=== PATIENT | female | born 1965 ===

== ENCOUNTER → 2020-05-13 09:31 | Outpatient (BNVA) | payer OTHER, SELFPAY | PROVIDERS: PCP Internal Medicine; Visit Provider Surgery | DX: E66.9 Obesity, unspecified (principal); Z68.34 Body mass index [BMI] 34.0-34.9, adult | CPT/HCPCS: 99212 ==

== ENCOUNTER → 2020-08-24 09:10 | Outpatient (BNVA) | payer OTHER, SELFPAY | PROVIDERS: PCP Internal Medicine; Visit Provider Physician Assistant | DX: E66.9 Obesity, unspecified (principal); Z68.34 Body mass index [BMI] 34.0-34.9, adult | CPT/HCPCS: 99212 ==

== ENCOUNTER 2020-09-06 07:09 | Outpatient (REF) | payer OTHER, SELFPAY ==
[2020-09-06 08:27] LABS: MANUAL DIFF FLAG NO
[2020-09-06 08:41] LABS: Basophils Absolute Auto 0.1 X10*3/uL (0.0-0.2); Basophils Percent Auto 0.8 % (0-2); Eosinophils Absolute Auto 0.1 X10*3/uL (0.0-0.4); Eosinophils Percent Auto 1.4 % (0-4); Hematocrit 36.2 % (37-47); Hemoglobin 11.4 g/dl (12.0-16.0); Imm Gran Abs Auto 0.01 X10*3/uL (0.00-0.03); Imm Gran Pct Auto 0.2 % (0.0-0.4); Lymphocytes Absolute Auto 2.1 X10*3/uL (1.2-4.9); Lymphocytes Percent Auto 31.3 % (20-40); Mean Corpuscular HGB Conc 31.5 g/dl (31.0-35.0); Mean Corpuscular Hemoglobin 29.2 pg (27.0-33.0); Mean Corpuscular Volume 92.6 fL (80-98); Mean Platelet Volume 11.4 fL (9.4-12.3); Monocytes Absolute Auto 0.4 X10*3/uL (0.1-1.2); Monocytes Percent Auto 6.6 % (2-11); Neutrophils Percent Auto 59.7 % (45-73); Platelet Count 193 X10*3/uL (160-400); Red Blood Count 3.91 X10*6/uL (4.20-5.50); Red Cell Distribution Width 14.8 % (11.0-16.0); White Blood Count 6.6 X10*3/uL (4.8-10.8)
[2020-09-06 08:46] LABS: Estimated Average Glucose 120 mg/dL; Hemoglobin A1c % 5.8 %
[2020-09-06 08:55] LABS: Alanine Aminotransferase 11 U/L (0-31); Albumin Level 4.1 g/dL (3.5-5.0); Alkaline Phosphatase 64 U/L (39-117); Anion Gap 10 (12-20); Aspartate Amino Transferase 13 U/L (5-31); Bilirubin Total 0.3 mg/dL (0.0-1.0); Blood Urea Nitrogen 30 mg/dL (9-16); C Reactive Protein 0.95 mg/dL (< or = 0.50); Calcium 9.5 mg/dL (8.4-10.2); Carbon Dioxide 27 mmol/L (22-29); Chloride 107 mmol/L (96-108); Cholesterol 158 mg/dL; Estimated Glomerular Filt Rate > 60; Glucose Random 93 mg/dL (60-115); HDL Cholesterol 50 mg/dL; LDL Cholesterol Calculated 97 mg/dl; Sodium 140 mmol/L (135-145); Total Protein 7.3 g/dL (6.5-8.0); Triglycerides 59 mg/dL
[2020-09-06 09:15] LABS: Ferritin 125 ng/mL (10-250); TSH reflex Free T4 1.02 uIU/mL (0.32-4.0); Vitamin D 25-OH Total 30.6 ng/mL (>30)
[2020-09-06 09:19] LABS: Folate 13.6 ng/mL (> or = 4.0); Vitamin B12 567 pg/mL (200-900)
[2020-09-07 09:32] LABS: Insulin Level Total 19.2 uIU/mL
[2020-09-08 13:46] LABS: Calcium (PTHI) 9.2 mg/dL (8.6-10.4); PTHI 83 pg/mL (14-64)
[2020-09-09 07:27] LABS: Zinc 64 mcg/dL (60-130)
[2020-09-10 12:31] LABS: Vitamin B1 7 nmol/L (8-30)
[2020-09-12 17:11] LABS: Vitamin A 41 mcg/dL (38-98)
== END 2020-09-06 07:10 | disposition home or self-care (01) ==
LOC: HO.LAB 07:09
PROVIDERS: PCP Internal Medicine; Visit Provider Physician Assistant
DX: E66.9 Obesity, unspecified (principal)
CPT/HCPCS: 36415; 80053; 80061; 82306; 82607; 82728; 82746; 83036; 83525; 83970; 84425; 84443; 84590; 84630; 85025; 86140

== ENCOUNTER → 2020-09-23 09:18 | Outpatient (BNVA) | payer OTHER, SELFPAY | PROVIDERS: PCP Internal Medicine; Visit Provider Physician Assistant | DX: E66.9 Obesity, unspecified (principal); Z68.33 Body mass index [BMI] 33.0-33.9, adult; D64.9 Anemia, unspecified; Z71.3 Dietary counseling and surveillance | CPT/HCPCS: 99212 ==

== ENCOUNTER → 2020-10-28 08:11 | Outpatient (BNVA) | payer OTHER, SELFPAY | PROVIDERS: PCP Internal Medicine; Visit Provider Dietitian, Registered | DX: E66.9 Obesity, unspecified (principal) | CPT/HCPCS: 97803 ==

== ENCOUNTER → 2020-11-25 08:25 | Outpatient (BNVA) | payer OTHER, SELFPAY | PROVIDERS: PCP Internal Medicine; Visit Provider Physician Assistant ==

== ENCOUNTER → 2020-12-23 10:01 | Outpatient (BNVA) | payer OTHER, SELFPAY | PROVIDERS: PCP Internal Medicine; Visit Provider Physician Assistant | DX: E66.9 Obesity, unspecified (principal); Z68.32 Body mass index [BMI] 32.0-32.9, adult | CPT/HCPCS: 99212 ==

== ENCOUNTER → 2021-04-12 09:14 | Outpatient (BNVA) | payer OTHER, SELFPAY | PROVIDERS: PCP Internal Medicine; Visit Provider Physician Assistant | DX: E66.9 Obesity, unspecified (principal); Z68.32 Body mass index [BMI] 32.0-32.9, adult | CPT/HCPCS: 99212 ==

== ENCOUNTER 2021-08-03 06:50 | Outpatient (REF) | payer OTHER, SELFPAY ==
[2021-08-03 07:05] LABS: MANUAL DIFF FLAG NO
[2021-08-03 07:55] LABS: Basophils Percent Auto 0.5 % (0-2); Eosinophils Absolute Auto 0.1 X10*3/uL (0.0-0.4); Eosinophils Percent Auto 1.9 % (0-4); Hematocrit 35.3 % (37.0-47.0); Hemoglobin 11.3 g/dl (12.0-16.0); Imm Gran Abs Auto 0.01 X10*3/uL (0.00-0.03); Imm Gran Pct Auto 0.2 % (0.0-0.4); Lymphocytes Absolute Auto 2.1 X10*3/uL (1.2-4.9); Lymphocytes Percent Auto 33.6 % (20-40); Mean Corpuscular Hemoglobin 29.6 pg (27.0-33.0); Mean Corpuscular Volume 92.4 fL (80.0-98.0); Mean Platelet Volume 11.1 fL (9.4-12.3); Monocytes Absolute Auto 0.5 X10*3/uL (0.1-1.2); Monocytes Percent Auto 7.3 % (2-11); Neutrophils Absolute Auto 3.6 x10*3/uL (2.0-8.3); Neutrophils Percent Auto 56.5 % (45-73); Platelet Count 187 X10*3/uL (160-400); Red Blood Count 3.82 X10*6/uL (4.20-5.50); Red Cell Distribution Width 14.6 % (11.0-16.0); White Blood Count 6.3 X10*3/uL (4.8-10.8)
[2021-08-03 08:07] LABS: Estimated Average Glucose 114 mg/dL; Hemoglobin A1c % 5.6 %
[2021-08-03 08:25] LABS: Alanine Aminotransferase 12 U/L (0-31); Albumin Level 3.9 g/dL (3.5-5.0); Alkaline Phosphatase 63 U/L (39-117); Anion Gap 11 (12-20); Aspartate Amino Transferase 16 U/L (5-31); Bilirubin Total 0.4 mg/dL (0.0-1.0); Blood Urea Nitrogen 29 mg/dL (9-16); Calcium 9.6 mg/dL (8.4-10.2); Carbon Dioxide 25 mmol/L (22-29); Chloride 107 mmol/L (96-108); Cholesterol 152 mg/dL; Estimated Glomerular Filt Rate > 60; Glucose Random 86 mg/dL (60-115); HDL Cholesterol 46 mg/dL; LDL Cholesterol Calculated 96 mg/dl; Potassium 3.9 mmol/L (3.3-5.1); Sodium 139 mmol/L (135-145); Total Protein 7.4 g/dL (6.5-8.0); Triglycerides 52 mg/dL
[2021-08-03 08:38] LABS: Vitamin D 25-OH Total 30.4 ng/mL (>30)
[2021-08-03 09:05] LABS: Folate 10.7 ng/mL (> or = 4.0); Vitamin B12 555 pg/mL (200-900)
[2021-08-03 09:11] LABS: Free T4 (Free Thyroxine) 0.92 ng/dL (0.71-1.85)
[2021-08-04 15:00] LABS: Calcium (PTHI) 9.7 mg/dL (8.6-10.4); PTHI 51 pg/mL (16-77)
[2021-08-07 04:41] LABS: Vitamin B1 13 nmol/L (8-30)
[2021-08-10 00:31] LABS: Vitamin A 49 mcg/dL (38-98)
== END 2021-08-03 06:51 | disposition home or self-care (01) ==
LOC: HO.LAB 06:50
PROVIDERS: Visit Provider Physician Assistant
DX: D64.9 Anemia, unspecified (principal); E66.9 Obesity, unspecified
CPT/HCPCS: 36415; 80053; 80061; 82306; 82607; 82746; 83036; 83970; 84425; 84439; 84443; 84590; 85025

== ENCOUNTER → 2021-08-18 09:48 | Outpatient (BNVA) | payer OTHER, SELFPAY | PROVIDERS: PCP Internal Medicine; Visit Provider Physician Assistant | DX: E66.9 Obesity, unspecified (principal); Z68.31 Body mass index [BMI] 31.0-31.9, adult; E03.9 Hypothyroidism, unspecified | CPT/HCPCS: 99212 ==

== ENCOUNTER → 2022-09-19 09:47 | Outpatient (BNVA) | payer OTHER, SELFPAY | PROVIDERS: PCP Internal Medicine; Visit Provider Physician Assistant Surgical ==

== ENCOUNTER → 2023-03-13 09:31 | Outpatient (BNVA) | payer OTHER, SELFPAY | PROVIDERS: PCP Internal Medicine; Referring Provider Physician Assistant; Visit Provider Neurological Surgery | DX: M54.9 Dorsalgia, unspecified (principal) ==

== ENCOUNTER → 2023-03-13 09:31 | Outpatient (BNVA) | payer OTHER, SELFPAY | PROVIDERS: PCP Internal Medicine; Visit Provider Neurological Surgery ==

== ENCOUNTER 2023-03-27 12:43 | Outpatient (AMB) | payer OTHER, SELFPAY ==
--- NOTE | 2023-03-27 13:09 | A.SPINEOV_ITS ---
Intake Intake Visit Reasons: degenerated disc disease Intake Note: Ms. Cox is here today c/o low back pain. MRI done @ [place]. Acute Specialist Required: No Allergies Adhesive Tape Allergy (Unknown, Uncoded 12/23/20 10:13) Rash Assessment & Plan Assessment & Plan (1) Back pain: Code(s): M54.9 - Dorsalgia, unspecified Plan Dear RIANNA Resendez, Thank you for referring Rosana to our office today. She is a pleasant 58-year-old female who comes in today with a chief complaint of low back pain accompanied by significant discomfort when attempting to lie on her left side. She reports this pain has been chronic for multiple years and has most recently became worse within the last year. She reports no inciting incident for low back pain/left lateral thigh pain, but does state that it worsens with standing/moving and lessens when lying down flat on her back or sitting. She reports that she has tried going to physical therapy in the past, has attempted director of medicare and finds that both of these activities have not been helpful for her. She also has tried [id number] remedies such as Tylenol, ibuprofen, ice, heat, pain patches without significant relief of her symptoms. She states that she has not been to see pain management/physiatry and is unsure if injections could be helpful for her at this time. PMH: Hypothyroidism, hypertension, GERD, seasonal allergies, partial hysterectomy, removal of unspecified mass from her chest per incoming medical record. Social hx: The patient does not smoke, reports no substance use. Medications: Tylenol, Fioricet, carvedilol, cetirizine, clotrimazole, diclofenac, famotidine, furosemide, fluticasone, levothyroxine, omeprazole. Allergies: NKDA. Physical exam: The patient has 5/5 strength in her upper and lower extremities. She does have moderate-severe pain to direct palpation of the left-sided trochanteric bursa. No pain to direct palpation of the lumbar/thoracic spine. Sensation is grossly intact. Reflexes are 2+ and intact. (-) straight leg raise, (-) clonus. Imaging review: MRI completed at [place] (patient has disc but did not bring it, we were able to view it remotely via [employer]) was reviewed by this teletypewriter operator and attending neurosurgeon Dr. Silveira. It shows some moderate left L5 foraminal stenosis, and diffuse degenerative disc disease at the levels of L2-3, L4-5, and L5-S1. No significant central canal stenosis noted in the lumbar spine. Impression: Rosana is a pleasant 58-year-old female who comes in today with chronic low back pain and significant pain with direct compression of the left- sided trochanteric bursa, which can be incited by either lying down her left side or pressing directly on the left lateral side of her thigh. She does have some moderate left-sided L5 foraminal stenosis as noted above, and also has degenerative disc disease at L2-3, L4-5, and L5-S1. She has tried physical therapy and director of medicare but is yet to attempt to see pain management/ for cortisone injections. Before offering her surgical intervention the attending neurosurgeon Dr. Silviera believes it would be more reasonable to have her attempt diagnostic injections to see if she can get relief in the affected areas as described above. I will refer her to pain management here at [facility] for both a left-sided bursa injection of the greater trochanter, and for evaluation of a left L5 TFE injection. The total time spent with this visit with this patient was 45 minutes reviewing history, physical exam, MRI imaging review, and implementation of treatment plan or further diagnostic testing. Arun Silveira MD,PhD [facility] Orders: Referrals Pain Management Referral M54.9 - Dorsalgia, unspecified Coding Level of Care Code New Pt Level 4 (85482) Diagnoses Back pain M54.9
== END 2023-03-27 13:49 | disposition home or self-care (01) ==
PROVIDERS: PCP Internal Medicine; Referring Provider Physician Assistant; Visit Provider Neurological Surgery
DX: M54.9 Dorsalgia, unspecified (principal)
CPT/HCPCS: 99204

== ENCOUNTER → 2023-03-27 12:43 | Outpatient (BNVA) | payer OTHER, SELFPAY | PROVIDERS: PCP Internal Medicine; Visit Provider Neurological Surgery | DX: M54.9 Dorsalgia, unspecified (principal) | CPT/HCPCS: 99202 ==

== ENCOUNTER 2023-03-29 09:57 | Outpatient (AMB) | payer OTHER, SELFPAY ==
--- NOTE | 2023-03-29 10:08 | A.OFFVIS_ITS ---
Intake Vital Signs 03/29/23 10:12 Height 5 ft 1 in Weight 183 lb 2 oz BMI 34.6 BP 122/88 Blood Pressure Location Lt brachial Position Sitting Respiration 18 Pulse 64 Pulse Source Pulse Oximeter Pulse Oximetry (%) 98 Oxygen Delivery Method Room Air Intake Visit Reasons: Dorsalgia, unspecified Allergies Adhesive Tape Allergy (Unknown, Uncoded 12/23/20 10:13) Rash HPI HPI Comments History of Present Illness Details Rosana is a very pleasant 58-year-old female who presented to the office today for evaluation management of her chronic back pain. Patient reports that she has been suffering with this pain for greater than 10 years. She was recently evaluated in neurospine office and referred here for further management and possible injections. Previously has tried Chiropractor, PT, HEP and NSAIDs without relief. MRI in the past, imaging not available but results per neurosurgery note were reviewed with patient. She complains of pain across middle and lower back, worse with movement and activity. Pain is most severe in the evening when she gets home from work, and when she tries to get comfortable for sleep. She is no longer able to tolerate laying on either side as is too uncomfortable. 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 She denies radiation of pain down either leg, denies weakness, numbness, tingling of either leg. Pain today is rated as 5/10. She has never tried muscle relaxers. In terms of muscle damage condition is described as aching, stabbing, sharp, cramping, numb and throbbing. Pain is negatively impacting patient's enjoyment of life, general activity, normal work, sleep and recreational activities. Patient denies red flag symptoms including new loss of bowel, bladder or saddle anesthesia. [facility] Medical History (Updated 03/29/23 @ 10:42 by Emy Newman, MECHANICAL DESIGN ENGINEER FACILITIES, AUTOMOBILE MECHANIC ASSISTANT) GERD (gastroesophageal reflux disease) Vertigo IBS (irritable bowel syndrome) Migraines Lateral meniscus tear Iron deficiency Dilatation of thoracic aorta Hypothyroidism Chronic systolic heart failure HTN (hypertension) Sleep apnea Surgical History H/O endoscopy H/O tubal ligation History of appendectomy History of arthroscopy of left knee History of bladder suspension procedure History of colonoscopy History of lumpectomy of right breast Mediastinal mass Family History Father No problems noted. Mother Arthritis Brother No problems noted. Brother No problems noted. Sister No problems noted. Son No problems noted. Son No problems noted. Social History (Updated 08/18/21 @ 10:05 by Emily Harris [facility]) Alcohol intake: never Patient Tobacco Use Status: Never used Tobacco Review of Systems Const All systems reviewed & are unremarkable except as noted in HPI and below Physical Exam General: awake, alert, oriented. Answers questions appropriately. Fully engaged in examination. Skin: warm, dry, intact HEENT: Normocephalic. Hearing intact. Cardiac: External chest normal in appearance. Respiratory: No cough, audible wheezing or stridor. Abdomen: without gross distension. MS: No obvious swelling or deformities. Able to stand on bilateral tiptoes and bilateral heels.? Able to transition from sit to stand unassisted. Ambulates with bilaterally normal heel strike and toe off Diffusely tender to palpation across bilateral thoracic and lumbar musculature Nontender over midline vertebrae SLR with and without dorsiflexion negative bilaterally Full lumbar flexion and extension [place] negative bilaterally [place] negative bilaterally Thigh thrust negative bilaterally SI compression negative bilaterally Neurological: Oriented to person, place, time and situation. Thought process intact. No gait abnormalities appreciated. Psychiatric: Appropriate mood and affect. Good judgment and insight. Results Reviewed Results Reviewed: per 03/27/2023 Neurosurgical visit note: Imaging review: MRI completed at [place] (patient has disc but did not bring it, we were able to view it remotely via [employer] ([employer])) was reviewed by this leader writer and attending neurosurgeon Dr. Silveira. It shows some moderate left L5 foraminal stenosis, and diffuse degenerative disc disease at the levels of L2-3, L4-5, and L5-S1. No significant central canal stenosis noted in the lumbar spine. Assessment & Plan Assessment & Plan (1) Degenerative disc disease, lumbar: Code(s): M51.36 - Other intervertebral disc degeneration, lumbar region (2) Myofascial low back pain: Code(s): M54.50 - Low back pain, unspecified (3) Back pain: Code(s): M54.9 - Dorsalgia, unspecified Plan Rosana is a very pleasant 58-year-old female who presented to the office today for evaluation management of her chronic lower back pain. History, physical exam provocative testing most consistent with myofascial back pain and lumbar degenerative disc disease. Order placed for PT eval and treat, patient requesting to go to [facility] as she has been there before and it is close to her home. TENS unit ordered, patient instructed on use. Pamphlet provided. Patient to aware that she will be getting a call to schedule delivery of device and supplies. Tizanidine 2 mg p.o. twice daily as needed for muscle spasm. No driving while taking this medication, may cause drowsiness. Patient has been instructed on cautions for use. All questions and concerns addressed during the visit. Patient will follow up here in 1 month to assess response to therapy, she may follow up sooner if needed. Orders: Orders PT Evaluation and Treatment Today M54.50 - Low back pain, unspecified, M54.9 - Dorsalgia, unspecified Medications: New tizanidine no driving while taking this medication, may cause drowsiness 2 mg PO BID PRN 60 tabs 0RF muscle spasticity Coding Level of Care Code New Pt Level 4 (25316) Diagnoses Degenerative disc disease, lumbar M51.36 Myofascial low back pain M54.50 Back pain M54.9
[2023-03-29 10:12] VITALS: BP 122/88; PULSE 64; RESP 18; O2SAT 98; BMI 34.6
== END 2023-03-29 10:43 | disposition home or self-care (01) ==
PROVIDERS: PCP Internal Medicine; Referring Provider Physician Assistant; Visit Provider Registered Nurse Emergency
DX: M51.36 Other intervertebral disc degeneration, lumbar region (principal); M54.50 Low back pain, unspecified; M54.9 Dorsalgia, unspecified
CPT/HCPCS: 99204

== ENCOUNTER → 2023-03-29 09:57 | Outpatient (BNVA) | payer OTHER, SELFPAY | PROVIDERS: PCP Internal Medicine; Referring Provider Physician Assistant; Visit Provider Registered Nurse Emergency | DX: M51.36 Other intervertebral disc degeneration, lumbar region (principal); M54.50 Low back pain, unspecified; M54.9 Dorsalgia, unspecified | CPT/HCPCS: 99202 ==

== ENCOUNTER → 2023-04-17 09:09 | Outpatient (BNVA) | payer OTHER, SELFPAY | PROVIDERS: PCP Internal Medicine; Visit Provider Physician Assistant Surgical ==

== ENCOUNTER 2023-06-05 13:50 | Outpatient (AMB) | payer OTHER, SELFPAY ==
--- NOTE | 2023-06-05 14:00 | A.OFFVIS_ITS ---
Intake VS Expanded 06/05/23 14:17 BP 126/66 Blood Pressure Location Rt brachial Blood Pressure Position Sitting Pulse 68 Pulse Source Pulse Oximeter Temp 97.3 F Temperature Source Temporal Artery Scan Pulse Oximetry 97 Oxygen Delivery Method Room Air Height 5 ft 1 in Weight 181 lb 3.2 oz BMI 34.2 Body Fat % 40.3 Body Fat Mass 73.0 Fat Free Mass 108.0 Visceral Fat Rating 11.0 Body Water % 42.4 Body Water Mass 76.8 Muscle Mass/Score 102.6 Basal Metabolic Rate/Score 1,487 Intake Visit Reasons: MWL BMI 34.5 Allergies Adhesive Tape Allergy (Unknown, Uncoded 12/23/20 10:13) Rash Medication List - Last Reconciled 06/05/23 by Kandi Bird PA-C [id number] 50-325-40 mg tabs PO carvedilol 12.5 mg PO BID furosemide 20 mg PO DAILY PRN ibuprofen 600 mg PO Q6H PRN levothyroxine 88 mcg PO DAILY loratadine 10 mg PO DAILY polyethylene glycol 3350 17 grams PO DAILY PRN sennosides-docusate sodium 8.6-50 mg (Stool Softener-Laxative) 1 tab PO DAILY simethicone (Gas Relief Extra Strength) 125 mg PO BID PRN HPI HPI Comments History of Present Illness Details 58 yo woman who has been in our SWL and MWL programs. [facility] appt in June 2019 at 227.4 lbs, she stopped SWL due to significant weight loss and then started MWL July 2020 at 180 lbs. Was in our program x 1 year, last appt in July 2021 at 166 lbs, TBWL was 61.4 lbs or 27%. She has regained 15 lbs over last 2 years. Patient is here to restart MWL. Sees coconut candy maker at [facility] - who did ECHO and took her off many meds. She wakes at: 7am, bed at 10- 11 pm - gets on phone or reads for 1-1.5 hours. Wakes up often. Breakfast: black coffee with 4 equal. with a sweet cracker. 9am - 3 d Premier shake RTD - OR 4d 3 eg gs and cheese with 1 toast. Lunch: 12 pm - if has eggs at breakfast - just picks on nuts. If has the shake will have salad and protein Dinner: 4pm - salmon with broccoli or salad, sweet potato beans.water After dinner: snacks on nuts or crackers and cheese Other snacks: when anxious may have chips or cheese Liquids:no soda or fruit juice Alcohol intake: none, tobacco: none, marijuana: none Exercise: none PFSH Medical History (Updated 06/05/23 @ 14:21 by Kandi Bird PA-C) GERD (gastroesophageal reflux disease) Vertigo IBS (irritable bowel syndrome) Migraines Lateral meniscus tear Iron deficiency Dilatation of thoracic aorta Hypothyroidism Chronic systolic heart failure HTN (hypertension) Sleep apnea Surgical History Mediastinal mass History of bladder suspension procedure History of arthroscopy of left knee History of appendectomy History of colonoscopy H/O endoscopy H/O tubal ligation History of lumpectomy of right breast Family History Father No problems noted. Mother Arthritis Brother No problems noted. Brother No problems noted. Sister No problems noted. Son No problems noted. Son No problems noted. Social History Alcohol intake: never Patient Tobacco Use Status: Never used Tobacco Assessment & Plan Assessment & Plan (1) Obesity: Code(s): E66.9 - Obesity, unspecified Plan: Pt learned alot during her appts with us but has slipped back into not exercising and snacking - especially at night after orthodoxy. 7:30 coffee 9am - Premier shake 12pm- 3 eggs Or 3 (6 forks) oz protein and vegetable 4pm - 4 oz (8 forks) protein , 6 oz 912 forks) vegetable, 2 oz sweet potato 9pm - yogurt or bar Exercise - treadmill 5d/ week - 300 calories. speed 3.0, inclino 2-7. Next appt with Ariane in 4 weeks, if she is losing does not need to see PA, can follow with RD prn. Labs ordered Patient is obese and is not considered stable at this time. I spent 45 minutes in total with patient reviewing/updating records, examining the patient and counseling the patient on weight management as detailed above. (2) Hypothyroidism (acquired): Code(s): E03.9 - Hypothyroidism, unspecified (3) Sleep apnea: Code(s): G47.30 - Sleep apnea, unspecified (4) Chronic systolic heart failure: Code(s): I50.22 - Chronic systolic (congestive) heart failure Plan see above Orders: Orders Insulin Today E03.9 - Hypothyroidism, unspecified, E66.9 - Obesity, unspecified, G47.30 - Sleep apnea, unspecified, I50.22 - Chronic systolic (congestive) heart failure IRON PROFILE Today E03.9 - Hypothyroidism, unspecified, E66.9 - Obesity, unspecified, G47.30 - Sleep apnea, unspecified, I50.22 - Chronic systolic (congestive) heart failure Vitamin B12 and Folate Today E03.9 - Hypothyroidism, unspecified, E66.9 - Obesity, unspecified, G47.30 - Sleep apnea, unspecified, I50.22 - Chronic systolic (congestive) heart failure Zinc Today E03.9 - Hypothyroidism, unspecified, E66.9 - Obesity, unspecified, G47.30 - Sleep apnea, unspecified, I50.22 - Chronic systolic (congestive) heart failure C Reactive Protein Today E03.9 - Hypothyroidism, unspecified, E66.9 - Obesity, unspecified, G47.30 - Sleep apnea, unspecified, I50.22 - Chronic systolic (congestive) heart failure Vitamin A Today E03.9 - Hypothyroidism, unspecified, E66.9 - Obesity, unspecified, G47.30 - Sleep apnea, unspecified, I50.22 - Chronic systolic (congestive) heart failure Hemoglobin A1c Today E03.9 - Hypothyroidism, unspecified, E66.9 - Obesity, unspecified, G47.30 - Sleep apnea, unspecified, I50.22 - Chronic systolic (congestive) heart failure Complete Blood Count Auto Diff Today E03.9 - Hypothyroidism, unspecified, E66.9 - Obesity, unspecified, G47.30 - Sleep apnea, unspecified, I50.22 - Chronic systolic (congestive) heart failure Lipid Panel Today E03.9 - Hypothyroidism, unspecified, E66.9 - Obesity, unspecified, G47.30 - Sleep apnea, unspecified, I50.22 - Chronic systolic (congestive) heart failure Comprehensive Met. Panel Today E03.9 - Hypothyroidism, unspecified, E66.9 - Obesity, unspecified, G47.30 - Sleep apnea, unspecified, I50.22 - Chronic systolic (congestive) heart failure Vitamin B1 Today E03.9 - Hypothyroidism, unspecified, E66.9 - Obesity, unspecified, G47.30 - Sleep apnea, unspecified, I50.22 - Chronic systolic (conge stive) heart failure TSH reflex Free T4 Today E03.9 - Hypothyroidism, unspecified, E66.9 - Obesity, unspecified, G47.30 - Sleep apnea, unspecified, I50.22 - Chronic systolic (congestive) heart failure Ferritin Today E03.9 - Hypothyroidism, unspecified, E66.9 - Obesity, unspecified, G47.30 - Sleep apnea, unspecified, I50.22 - Chronic systolic (c ongestive) heart failure Vitamin D 25-OH Total Today E03.9 - Hypothyroidism, unspecified, E66.9 - Obesity, unspecified, G47.30 - Sleep apnea, unspecified, I50.22 - Chronic s ystolic (congestive) heart failure Coding Level of Care Code Est Pt Level 4 (95447) Diagnoses Obesity E66.9 Hypothyroidism (acquired) E03.9 Sleep apnea G47.30 Chronic systolic heart failure I50.22
[2023-06-05 14:17] VITALS: BP 126/66; PULSE 68; TEMP 36.3; O2SAT 97; BMI 34.2
== END 2023-06-05 14:57 | disposition home or self-care (01) ==
PROVIDERS: PCP Internal Medicine; Visit Provider Physician Assistant
DX: E66.9 Obesity, unspecified (principal); Z68.34 Body mass index [BMI] 34.0-34.9, adult; G47.30 Sleep apnea, unspecified; I50.22 Chronic systolic (congestive) heart failure
CPT/HCPCS: 99214

== ENCOUNTER → 2023-06-05 13:50 | Outpatient (BNVA) | payer OTHER, SELFPAY | PROVIDERS: PCP Internal Medicine; Visit Provider Physician Assistant | DX: E66.9 Obesity, unspecified (principal); E03.9 Hypothyroidism, unspecified; G47.30 Sleep apnea, unspecified; I50.22 Chronic systolic (congestive) heart failure; Z68.34 Body mass index [BMI] 34.0-34.9, adult | CPT/HCPCS: 99212 ==

== ENCOUNTER 2023-06-20 08:35 | Outpatient (REF) | payer OTHER, SELFPAY ==
[2023-06-20 08:56] LABS: MANUAL DIFF FLAG NO
[2023-06-20 09:36] LABS: Basophils Absolute Auto 0.1 X10*3/uL (0.0-0.2); Basophils Percent Auto 0.8 % (0-2); Eosinophils Absolute Auto 0.1 X10*3/uL (0.0-0.4); Eosinophils Percent Auto 1.6 % (0-4); Hematocrit 35.9 % (37.0-47.0); Hemoglobin 11.6 g/dl (12.0-16.0); Imm Gran Abs Auto 0.04 X10*3/uL (0.00-0.03); Imm Gran Pct Auto 0.6 % (0.0-0.4); Lymphocytes Percent Auto 32.6 % (20-40); Mean Corpuscular HGB Conc 32.3 g/dl (31.0-35.0); Mean Corpuscular Hemoglobin 29.7 pg (27.0-33.0); Mean Corpuscular Volume 91.8 fL (80.0-98.0); Mean Platelet Volume 11.3 fL (9.4-12.3); Monocytes Absolute Auto 0.5 X10*3/uL (0.1-1.2); Monocytes Percent Auto 7.3 % (2-11); Neutrophils Absolute Auto 3.5 x10*3/uL (2.0-8.3); Neutrophils Percent Auto 57.1 % (45-73); Platelet Count 168 X10*3/uL (160-400); Red Blood Count 3.91 X10*6/uL (4.20-5.50); Red Cell Distribution Width 14.7 % (11.0-16.0); White Blood Count 6.2 X10*3/uL (4.8-10.8)
[2023-06-20 09:38] LABS: Estimated Average Glucose 120 mg/dL; Hemoglobin A1c % 5.8 % (<6.0)
[2023-06-20 10:19] LABS: Alanine Aminotransferase 7 U/L (0-31); Alkaline Phosphatase 56 U/L (39-117); Anion Gap 10 (12-20); Aspartate Amino Transferase 13 U/L (5-31); Bilirubin Total 0.5 mg/dL (0.0-1.0); Blood Urea Nitrogen 24 mg/dL (9-16); C Reactive Protein 0.62 mg/dL (< or = 0.50); Calcium 9.3 mg/dL (8.4-10.2); Carbon Dioxide 27 mmol/L (22-29); Chloride 106 mmol/L (96-108); Cholesterol 168 mg/dL (<200); Estimated Glomerular Filt Rate > 60; Glucose Random 93 mg/dL (60-115); HDL Cholesterol 54 mg/dL (>40); Iron 72 mcg/dL (30-160); LDL Cholesterol Calculated 105 mg/dL (<100); Percent Iron Saturation 29 % (15-50); Potassium 4.2 mmol/L (3.3-5.1); Sodium 139 mmol/L (135-145); Total Iron Binding Capacity 246 mcg/dL (228-428); Total Protein 7.7 g/dL (6.5-8.0); Triglycerides 45 mg/dL (<150); Unsaturated Iron Binding 174 ug/dL
[2023-06-20 10:35] LABS: Ferritin 166 ng/mL (10-250); Insulin 8 uU/mL (2-29); TSH reflex Free T4 1.77 uIU/mL (0.32-4.0); Vitamin D 25-OH Total 27.2 ng/mL (>30)
[2023-06-20 10:38] LABS: Folate 11.8 ng/mL (> or = 4.0); Vitamin B12 508 pg/mL (200-900)
[2023-06-22 13:13] LABS: Zinc 70 mcg/dL (60-130)
[2023-06-23 18:53] LABS: Vitamin A 48 mcg/dL (38-98)
[2023-06-25 15:48] LABS: Vitamin B1 11 nmol/L (8-30)
== END 2023-06-20 08:36 | disposition home or self-care (01) ==
LOC: HO.LAB 08:35
PROVIDERS: PCP Internal Medicine; Visit Provider Physician Assistant
DX: I50.22 Chronic systolic (congestive) heart failure (principal); G47.30 Sleep apnea, unspecified; E03.9 Hypothyroidism, unspecified; E66.9 Obesity, unspecified
CPT/HCPCS: 36415; 80053; 80061; 82306; 82607; 82728; 82746; 83036; 83525; 83540; 84425; 84443; 84590; 84630; 85025; 86140

== ENCOUNTER 2023-07-04 14:15 | Outpatient (AMB) | payer OTHER, SELFPAY ==
--- NOTE | 2023-07-04 14:40 | A.OFFVIS_ITS ---
Intake VS Expanded 07/04/23 15:16 BP 129/76 Pulse 54 Height 5 ft 1 in Intake Visit Reasons: (OV) Initial Nutrition MWL Data Specialist Required: Yes Data Specialist Name: jolie [email or web address] Information Interpreted: non-clinical & clinical Allergies Adhesive Tape Allergy (Unknown, Uncoded 12/23/20 10:13) Rash HPI Nutrition Presentation Details has been in our SWL and MWL programs. [facility] appt in June 2019 at 227.4 lbs, she stopped SWL due to significant weight loss and then started MWL July 2020 at 180 lbs. Was in our program x 1 year, last appt in July 2021 at 166 lbs, TBWL was 61.4 lbs or 27%. She has regained 15 lbs over last 2 years. Patient is here to restart MWL. Reason for consult elevated BMI Diet Assmnt Details I learned how to eat, but i stopped exercising - identifies this as a main reason she regained weight. Her is in the hospital now, so her nutrition has been off . eats at the hospital -using the hunger scale, we identified she is letting herself get too hungry and making poor food choices. exercise: I don't have any excuse , dislikes the gym , only wants to exercise outside. but is too cold out . Dietary counseling reduction Who buys your food self Who prepares/cooks your food self Diagnosis Nutrition problem #1 overweight/obesity As related to (etiology) #1 excess energy intake and physical inactivity As evidenced by (sign/symptom) #1 high BMI Monitoring/Goals Nutrition problem monitoring total energy intake, level of knowledge/skill, total PRO intake, total CHO intake and weight Learning/Education Readiness to learn good Stages of change preparation Educational materials provided Yes Most Recent Diabetes Results: Cholesterol 168 mg/dL (<200) 06/20/23 HDL Cholesterol 54 mg/dL (>40) 06/20/23 Triglycerides 45 mg/dL (<150) 06/20/23 Creatinine 0.75 mg/dL (0.5-1.4) 06/20/23 Blood Urea Nitrogen 24 mg/dL (9-16) H 06/20/23 Sodium 139 mmol/L (135-145) 06/20/23 Potassium 4.2 mmol/L (3.3-5.1) 02/22/24 Chloride 106 mmol/L (96-108) 06/20/23 Carbon Dioxide 27 mmol/L (22-29) 06/20/23 Calcium 9.3 mg/dL (8.4-10.2) 06/20/23 AST 13 U/L (5-31) 06/20/23 ALT 7 U/L (0-31) 06/20/23 Total Protein 7.7 g/dL (6.5-8.0) 06/20/23 Albumin 4.0 g/dL (3.5-5.0) 06/20/23 [facility] Medical History (Updated 06/05/23 @ 14:21 by Kandi Bird PA-C) GERD (gastroesophageal reflux disease) Vertigo IBS (irritable bowel syndrome) Migraines Lateral meniscus tear Iron deficiency Dilatation of thoracic aorta Hypothyroidism Chronic systolic heart failure HTN (hypertension) Sleep apnea Surgical History Mediastinal mass History of bladder suspension procedure History of arthroscopy of left knee History of appendectomy History of colonoscopy H/O endoscopy H/O tubal ligation History of lumpectomy of right breast Family History Father No problems noted. Mother Arthritis Brother No problems noted. Brother No problems noted. Sister No problems noted. Son No problems noted. Son No problems noted. Social History Alcohol intake: never Patient Tobacco Use Status: Never used Tobacco Assessment & Plan Assessment & Plan (1) Obesity (BMI 30-39.9): Code(s): E66.9 - Obesity, unspecified Plan see below Patient Instructions: educated pt on prioritizing protein and fiber rich foods and sticking to a meal structure . reviewed hunger scale. reviewed labs. encouraged exercising outside and dressing for the weather. will follow up prn in the program. Coding Level of Care Code Nutr Indiv Intake (91160) Diagnoses Obesity (BMI 30-39.9) E66.9 Time Spent (min) 30
[2023-07-04 15:16] VITALS: BP 129/76; PULSE 54
== END 2023-07-04 15:18 | disposition home or self-care (01) ==
PROVIDERS: PCP Internal Medicine; Visit Provider Dietitian, Registered
DX: E66.9 Obesity, unspecified (principal)

== ENCOUNTER → 2023-07-04 14:15 | Outpatient (BNVA) | payer OTHER, SELFPAY | PROVIDERS: PCP Internal Medicine; Visit Provider Dietitian, Registered | DX: E66.9 Obesity, unspecified (principal) | CPT/HCPCS: 97802 ==

== ENCOUNTER 2023-10-16 09:36 | Outpatient (AMB) | payer OTHER, SELFPAY ==
--- NOTE | 2023-10-16 09:41 | MHC.OFFVISWM ---
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 Allergies Adhesive Tape Allergy (Unknown, Uncoded 12/23/20 10:13) Rash Medication List - Last Reconciled 10/16/23 by RIANNA Juarez [id number] 50-325-40 mg tabs PO carvedilol 12.5 mg PO BID cholecalciferol (vitamin D3) 25 mcg PO DAILY furosemide 20 mg PO DAILY PRN ibuprofen 600 mg PO Q6H PRN iron,carbonyl-vitamin C 65 mg iron- 125 mg (Vitron-C) 1 tab PO BEDTIME levothyroxine 88 mcg PO DAILY loratadine 10 mg PO DAILY polyethylene glycol 3350 17 grams PO DAILY PRN sennosides-docusate sodium 8.6-50 mg (Stool Softener-Laxative) 1 tab PO DAILY simethicone (Gas Relief Extra Strength) 125 mg PO BID PRN HPI Comments Details: Pt presents in followup of MWL. Starting weight: 181.2 Current weight: 183 Total weight change: +1.8 has been in our SWL and MWL programs. 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 Was in our program x 1 year, last appt in July 2021 at 166 lbs, TBWL was 61.4 lbs or 27%. She has regained 15 lbs over last 2 years. Patient returned to restart MWL. Meal plan given at initial visit: 7:30 coffee 9am - Premier shake 12pm- 3 eggs Or 3oz (6 forks) protein and vegetable 4pm - 4 oz (8 forks) protein , 6 oz (12 forks) vegetable, 2 oz sweet potato 9pm - yogurt or bar Exercise - treadmill 5d/ week - 300 calories. speed 3.0, incline 2-7 was encouraged to prioritize protein and fiber was prescribed vit D and iron, not taking iron as it causes constipation, senna does not help currently pt reports the following schedule: walking 15-20 minutes in AM coffee with sugar substitute and milk will have 2-3 eggs with laura around 10am 4pm has meat PFSH Medical History (Updated 06/05/23 @ 14:21 by Kandi Bird PA-C) GERD (gastroesophageal reflux disease) Vertigo IBS (irritable bowel syndrome) Migraines Lateral meniscus tear Iron deficiency Dilatation of thoracic aorta Hypothyroidism Chronic systolic heart failure HTN (hypertension) Sleep apnea Surgical History Mediastinal mass History of bladder suspension procedure History of arthroscopy of left knee History of appendectomy History of colonoscopy H/O endoscopy H/O tubal ligation History of lumpectomy of right breast Family History Father No problems noted. Mother Arthritis Brother No problems noted. Brother No problems noted. Sister No problems noted. Son No problems noted. Son No problems noted. Social History Alcohol intake: never Patient Tobacco Use Status: Never used Tobacco Physical Exam Vital Signs: Last Vital Signs Temp 97.0 F 10/16/23 09:49 Pulse 59 10/16/23 09:49 BP 119/65 10/16/23 09:49 Pulse Ox 95 10/16/23 09:49 Oxygen Delivery Method Room Air 10/16/23 09:49 BMI result Body Mass Index 34.6 Assessment & Plan Assessment & Plan (1) Obesity: Code(s): E66.9 - Obesity, unspecified Category: Medical (2) Sleep apnea: Code(s): G47.30 - Sleep apnea, unspecified Category: Medical (3) HTN (hypertension): Code(s): I10 - Essential (primary) hypertension Category: Medical (4) GERD (gastroesophageal reflux disease): Code(s): K21.9 - Gastro-esophageal reflux disease without esophagitis Category: Medical Plan We discussed how she had been previously successful with weight loss 2 years ago to get to 166lbs; she reports following a meal plan at that time that relied more on protein products. She is likely not getting enough protein currently if only eating 2x/day. Goal 75g/day. We discussed that not getting adequate protein was hindering weight loss. 8am- shake 11am- 2 eggs +/- veg OR yogurt 4pm- 3 oz meat, 3oz salad/veg 8pm- yogurt or bar Gave healthy foods handout. Miralax for constipation, take daily and resume iron. Gave pt my cell phone and encouraged her to communicate between appointments with any questions. RTC 2-3 months. Patient is obese and is not considered stable at this time. I spent a total of 30 minutes reviewing/updating records, examining the patient and counseling the patient on weight management as detailed above. Medications: New polyethylene glycol 3350 (Miralax) 17 grams PO DAILY 238 grams 3RF
[2023-10-16 09:49] VITALS: BP 119/65; PULSE 59; TEMP 36.1; O2SAT 95; BMI 34.6
== END 2023-10-16 10:24 | disposition home or self-care (01) ==
PROVIDERS: PCP Internal Medicine; Visit Provider Physician Assistant Surgical
DX: E66.9 Obesity, unspecified (principal); Z68.30 Body mass index [BMI] 30.0-30.9, adult; G47.30 Sleep apnea, unspecified; I10 Essential (primary) hypertension; K21.9 Gastro-esophageal reflux disease without esophagitis
CPT/HCPCS: 99214

== ENCOUNTER → 2023-10-16 09:36 | Outpatient (BNVA) | payer OTHER, SELFPAY | PROVIDERS: PCP Internal Medicine; Visit Provider Physician Assistant Surgical | DX: E66.9 Obesity, unspecified (principal); K21.9 Gastro-esophageal reflux disease without esophagitis; G47.30 Sleep apnea, unspecified; I10 Essential (primary) hypertension; Z68.34 Body mass index [BMI] 34.0-34.9, adult | CPT/HCPCS: 99212 ==

== ENCOUNTER → 2024-03-02 09:56 | Outpatient (BNVA) | payer OTHER, SELFPAY | PROVIDERS: PCP Internal Medicine; Visit Provider Physician Assistant Surgical ==

== ENCOUNTER 2024-03-02 13:23 | Outpatient (AMB) | payer OTHER, SELFPAY ==
--- NOTE | 2024-03-02 13:12 | A.OFFVIS_ITS ---
Intake Visit Reasons: (TV) F/U MWL Human Services Case Manager Required: Yes Human Services Case Manager Name: [id number] Information Interpreted: clinical only Allergies Adhesive Tape Allergy (Unknown, Uncoded 12/23/20 10:13) Rash Medication List - Last Reconciled 03/02/24 by RIANNA Juarez [id number]-hgbmhzyikvrny-nutg 50-325-40 mg tabs PO carvedilol 12.5 mg PO BID cholecalciferol (vitamin D3) 25 mcg PO DAILY furosemide 20 mg PO DAILY PRN ibuprofen 600 mg PO Q6H PRN iron,carbonyl-vitamin C 65 mg iron- 125 mg (Vitron-C) 1 tab PO BEDTIME levothyroxine 88 mcg PO DAILY loratadine 10 mg PO DAILY polyethylene glycol 3350 (Miralax) 17 grams PO DAILY sennosides-docusate sodium 8.6-50 mg (Stool Softener-Laxative) 1 tab PO DAILY simethicone (Gas Relief Extra Strength) 125 mg PO BID PRN HPI Comments Details: Pt presents in followup of MWL. Starting weight: 181.2 Weight at last visit: 183 Current weight: 179 Total weight change: -2.2 has been in our SWL and MWL programs. 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 Was in our program x 1 year, last appt in July 2021 at 166 lbs, TBWL was 61.4 lbs or 27%. She has regained 15 lbs over last 2 years. Patient returned to restart MWL. Meal plan given at initial visit: 7:30 coffee 9am - Premier shake 12pm- 3 eggs Or 3oz (6 forks) protein and vegetable 4pm - 4 oz (8 forks) protein , 6 oz (12 forks) vegetable, 2 oz sweet potato 9pm - yogurt or bar Exercise - treadmill 5d/ week - 300 calories. speed 3.0, incline 2-7 was encouraged to prioritize protein and fiber resumed iron Meal plan given at last visit: 8am- shake 11am- 2 eggs +/- veg OR yogurt 4pm- 3 oz meat, 3oz salad/veg 8pm- yogurt or bar Pt continues to have a shake for breakfast, will have some meat in late morning, half a shake later in afternoon, meat and veg for dinner, no longer using bars. Has one yogurt per day. [facility] Medical History (Updated 06/05/23 @ 14:21 by Kandi Bird PA-C) GERD (gastroesophageal reflux disease) Vertigo IBS (irritable bowel syndrome) Migraines Lateral meniscus tear Iron deficiency Dilatation of thoracic aorta Hypothyroidism Chronic systolic heart failure HTN (hypertension) Sleep apnea Surgical History Mediastinal mass History of bladder suspension procedure History of arthroscopy of left knee History of appendectomy History of colonoscopy H/O endoscopy H/O tubal ligation History of lumpectomy of right breast Family History Father No problems noted. Mother Arthritis Brother No problems noted. Brother No problems noted. Sister No problems noted. Son No problems noted. Son No problems noted. Social History Alcohol intake: never Patient Tobacco Use Status: Never used Tobacco Telehealth Telehealth Telehealth Platform: Telephone Location of provider rendering services: practice address Location of patient: address on file Patient Identification confirmed using: Name, : Yes Telehealth method: voice only Patient verbally consented to treatment: Yes Patient verbally consented to billing insurance company: Yes Patient informed of any privacy concerns related to visit: Yes Minutes spent on Phone/Video with Pt.: 28 Assessment & Plan Assessment & Plan (1) Obesity: Code(s): E66.9 - Obesity, unspecified Category: Medical Plan Pt recognizes that she lost a lot of weight in the past by following a much stricter meal plan. She does not want to follow such a strict plan. I discussed that weight loss would likely be slower if she is using fewer supplements. She is in agreement to try a stricter plan. 7:30 coffee 9am - Premier shake half bottle mixed with 3oz unsweetened almond milk 12pm - same shake as above 4pm - 4 oz (8 forks) protein , 6 oz (12 forks) vegetable, 2 oz healthy carb 9pm - yogurt, can add fruit Sent healthy foods list. Encouraged pt to communicate between appointments with any questions. RTC 3 months. I spent a total of 30 minutes reviewing/updating records, examining the patient and counseling the patient on weight management as detailed above.
== END 2024-03-02 13:41 | disposition home or self-care (01) ==
LOC: HO.HBS 13:23
PROVIDERS: PCP Internal Medicine; Visit Provider Physician Assistant Surgical
DX: E66.811 Obesity, class 1 (principal); Z68.34 Body mass index [BMI] 34.0-34.9, adult
CPT/HCPCS: 99214; G2211

== ENCOUNTER 2024-10-14 09:07 | Outpatient (AMB) | payer OTHER, SELFPAY ==
--- NOTE | 2024-10-14 09:11 | A.OFFVIS_ITS ---
VS Expanded 10/14/24 09:30 BP 127/76 Blood Pressure Location Rt brachial Blood Pressure Position Sitting Pulse 58 Pulse Source Pulse Oximeter Temp 97.3 F Temperature Source Temporal Artery Scan Pulse Oximetry 96 Oxygen Delivery Method Room Air Height 5 ft 1 in Weight 187 lb BMI 35.3 Body Fat % 42.9 Body Fat Mass 80.2 Fat Free Mass 106.8 Visceral Fat Rating 12.0 Body Water % 40.4 Body Water Mass 75.6 Muscle Mass/Score 101.2 Basal Metabolic Rate/Score 1,482 Intake Visit Reasons: (OV) F/U MWL Industrial Management Teacher Required: Yes Industrial Management Teacher Name: Arjun Mccord (Mere)- [id number] Information Interpreted: clinical only Allergies Adhesive Tape Allergy (Unknown, Uncoded 12/23/20 10:13) Rash Medication List - Last Reconciled 10/14/24 by RIANNA Juarez paeihxeuzh-[id number]-ykyh 50-325-40 mg tabs PO carvedilol 12.5 mg PO BID cholecalciferol (vitamin D3) 25 mcg PO DAILY furosemide 20 mg PO DAILY PRN ibuprofen 600 mg PO Q6H PRN iron,carbonyl-vitamin C 65 mg iron- 125 mg (Vitron-C) 1 tab PO BEDTIME levothyroxine 88 mcg PO DAILY loratadine 10 mg PO DAILY polyethylene glycol 3350 (Miralax) 17 grams PO DAILY sennosides-docusate sodium 8.6-50 mg (Stool Softener-Laxative) 1 tab PO DAILY simethicone (Gas Relief Extra Strength) 125 mg PO BID PRN HPI Comments Details: Starting weight: 181.2 Weight at last visit: 179 Current weight: 187 Total weight change: +5.8 Has been in our SWL and MWL programs. 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 Was in our program x 1 year, last appt in July 2021 at 166 lbs, TBWL was 61.4 lbs or 27%. She has regained 15 lbs over last 2 years. Patient returned to restart MWL in May 2023. Meal plan given at initial visit: 7:30 coffee 9am - Premier shake 12pm- 3 eggs or 3oz (6 forks) protein and vegetable 4pm - 4 oz (8 forks) protein, 6 oz (12 forks) vegetable, 2 oz sweet potato 9pm - yogurt or bar Exercise - treadmill 5d/ week - 300 calories. speed 3.0, incline 2-7 was encouraged to prioritize protein and fiber resumed iron Meal plan given at more recent visit: 8am- shake 11am- 2 eggs +/- veg OR yogurt 4pm- 3 oz meat, 3oz salad/veg 8pm- yogurt or bar Pt asks today about eating meat- was on a meat diet for a month. Eggs, ribs, chicken saw no results . She reports she has been following the nutrition plan 70% but still confused why she is not losing weight. [facility] Medical History (Updated 06/05/23 @ 14:21 by Kandi Bird PA-C) GERD (gastroesophageal reflux disease) Vertigo IBS (irritable bowel syndrome) Migraines Lateral meniscus tear Iron deficiency Dilatation of thoracic aorta Hypothyroidism Chronic systolic heart failure HTN (hypertension) Sleep apnea Surgical History Mediastinal mass History of bladder suspension procedure History of arthroscopy of left knee History of appendectomy History of colonoscopy H/O endoscopy H/O tubal ligation History of lumpectomy of right breast Family History Father No problems noted. Mother Arthritis Brother No problems noted. Brother No problems noted. Sister No problems noted. Son No problems noted. Son No problems noted. Social History Alcohol intake: never Patient Tobacco Use Status: Never used Tobacco Physical Exam Vital Signs: Last Vital Signs Temp 97.3 F 10/14/24 09:30 Pulse 58 10/14/24 09:30 BP 127/76 10/14/24 09:30 Pulse Ox 96 10/14/24 09:30 Oxygen Delivery Method Room Air 10/14/24 09:30 BMI result Body Mass Index 35.3 Assessment & Plan Assessment & Plan (1) Obesity: Code(s): E66.9 - Obesity, unspecified Category: Medical Plan I reminded pt that obesity is a disease and that for many diseases it is not ideal to treat them only 70% , we would want to treat them completely. I gave her [employer] vic download info and encouraged her to develop a plan that was created by the vic that was something sustainable for her. She requests bloodwork so I ordered. Gave her my cell phone # and encouraged her to text between visits with any questions. RTC 3mo. Orders: Orders Insulin Today E66.9 - Obesity, unspecified Complete Blood Count Auto Diff Today E66.9 - Obesity, unspecified Lipid Panel Today E66.9 - Obesity, unspecified Zinc Today E66.9 - Obesity, unspecified Vitamin A Today E66.9 - Obesity, unspecified Vitamin D 25-OH Total Today E66.9 - Obesity, unspecified Comprehensive Met. Panel Today E66.9 - Obesity, unspecified C Reactive Protein Today E66.9 - Obesity, unspecified Hemoglobin A1c Today E66.9 - Obesity, unspecified IRON PROFILE Today E66.9 - Obesity, unspecified Ferritin Today E66.9 - Obesity, unspecified Vitamin B12 and Folate Today E66.9 - Obesity, unspecified Vitamin B1 Today E66.9 - Obesity, unspecified TSH reflex Free T4 Today E66.9 - Obesity, unspecified
[2024-10-14 09:30] VITALS: BP 127/76; PULSE 58; TEMP 36.3; O2SAT 96; BMI 35.3
--- OUTSIDE RECORDS SUMMARY | 2024-10-14 09:49 | XMS_ITS | Clinical Summary ---
Author Organization [facility] Address [address] [place] [address] Care Team Providers Care Parks And Recreation Manager Name Role Phone Cynthia Johnson DMD Primary Care Provider [phone] Source Comments PLEASE NOTE, if this patient is a minor, it may be UNLAWFUL to discuss sensitive information that is contained in these records (such as FAMILY PLANNING, MENTAL HEALTH or SUBSTANCE ABUSE) with the minor patient's parent or other person without the patient's specific authorization.[facility] Allergies No known active allergies Medications acetaminophen (TYLENOL) 500 mg tablet Take 1 Tab by mouth every 6 (six) hours as needed for pain 12 Tab 01/28/20 19 Active sodium fluoride-pot nitrate (PREVIDENT 5000 SENSITIVE) 1.1-5 % psteIndications:Toot h hypersensitivity Morrison twice a day every day for 2 minutes each time, after brushing put some paste on your finger tip to gently massage the gum area and the sensitive part of the teeth for 1 minute. Expectorate but Do Not rinse, eat or drink after using this. 100 mL 3 04/03/20 22 Active Active Problems No known active problems Encounters Date Type Department Care Team Description 09/22/2024 10:20 AM EDT Office Visit [facility] [place] [phone] Alma Rosa Benjamin Encounter for dental examination (Primary Dx) from Last 3 Months Social History Tobacco Use Types Packs/Day Years Used Date Smoking Tobacco: Never Smokeless Tobacco: Never Social Connections Answer Date Recorded Connectedness 0 01/23/2024 Financial Resource Strain Answer Date R ecorded Financial Resource Strain 0 2019 Stress Answer Date Recorded Stress 0 07/24/2019 Physical Activity Answer Date Recorded Physical Activity 0 07/24/2019 Food Insecurity Answer Date Recorded Food 0 01/23/2024 Transportation Needs Answer Date Record ed Transportation 0 07/24/2019 Housing Stability Answer Date Recorded Housing 0 07/24/2019 Safety and Environment Answer Date Sheldon rded Safety 0 07/24/2019 Utilities Answer Date Recorded Utilities 0 07/24/2019 Employment Answer Date Recorded Stress 0 01/23/2024 Comments Unknown Sex and Gender Information Value Date Recorded Sex Assigned at Not on file Legal Sex Female 12:17 PM PDT Gender Identity Not on file Sexual Orientation Not on file Last Filed Vital Signs Vital Sign Reading Time Taken Comments Blood Pressure 131/92 09/22/2024 10:28 AM EDT Pulse 56 09/22/2024 10:28 AM EDT Temperature - - Respiratory Rate - - Oxygen Saturation - - Inhaled Oxygen Concentration - - Weight - - Height - - Body Mass Index - - Plan of Treatment Upcoming Encounters Date Type Department Care Team (Late st Contact Info) Description 11/18/2024 2:30 PM EDT Office Visit [facility] [place] [phone] Ilda Driscoll, DMD [address] [place] [address] 03/29/2025 10:20 AM EST Office Visit [facility] [place] [phone] Carlos Kerrssica Y [address] [place] [address] Health Maintenance Due Date Last Done Comments Anxiety Screening 1966 Dental FMX/Pano 1966 HPV Screening 1966 Hepatitis C Screening 1966 Pap + HPV 1966 HIV Screening 1981 Imm-Hepatitis B (1 of 3 - 19 + 3-dose series) 1985 Cervical Cancer Screening 1987 Pap Smear 1987 Breast Cancer Screening (Mammogram) 2006 CT Colonography 2011 Colonoscopy 2011 Colorectal Cancer Screening 2011 FIT/gFOBT 2011 Fecal DNA 2011 Flexible Sigmoidoscopy 2011 Imm-Zoster, Recombinant (1 of 2) 01/23/2016 [id number] ( season) 2023 06/15/2021, 09/29/2020, 09/08/2020 Alcohol and Drug Screen 04/29/2024 Depression Annual Screen 04/29/2024 Imm-Influenza (Season Ended) 2024, 03/04/2012, 01/12/2009, Additional history exists Diabetes Screening 07/15/2025 07/15/2024, 0 07/15/2024, 07/02/2024 Hypertension Screening (#1) 09/22/2025 Tobacco Screening 09/22/2025 09/22/2024 Dental BW 09/24/2025 09/22/2024, 06/0 04/2022, 04/03/2022 Dental Examination 09/24/2025 09/22/2024, 0 09/27/2022, 04/03/2022 Dental Perio Charting 09/24/2025 09/22/2024 , 09/27/2022, 04/03/2022 Dental Prophy 09/24/2025 09/22/2024, 06/0 04/2022, 04/03/2022 Lipid Screening 09/02/2029 09/02/2024 Imm-DTaP/Tdap/Td (3 - Td or Tdap) 10/28/2033 10/29/2023, 12/22/2012, 12/04/2006 Cervical Ablation/Cold-Knife Conization Discontinued Cervical Cryotherapy Discontinued Colposcopy Discontinued Endometrial Biopsy Discontinued Excision/Leep Discontinued HPV Genotyping Discontinued Vaginal Pap Discontinued Vulvoscopy Discontinued Procedures Procedure Name Priority Date/Time Associated Diagnosis Comments INTRAORAL - PERIAPICAL EACH ADD RADIOGRAPH IMAGE Routine 09/22/2024 10:20 AM EDT Encounter for dental examination INTRAORAL - PERIAPICAL FIRST RADIOGRAPHIC IMAGE Routine 09/22/2024 10:20 AM EDT Encounter for dental examination DENTAL CASE MANAGEMENT - MOTIVATIONAL INTV Routine 09/22/2024 10:20 AM EDT Encounter for dental examination PROPHYLAXIS - ADULT Routine 09/22/2024 1 0:20 AM EDT Encounter for dental examination BITEWINGS - FOUR RADIOGRAPHIC IMAGES Routine 09/22/2024 10:20 AM EDT Encounter for dental examination COMP PERIODONTAL EVALUATION - NEW/EST PATIENT Routine 09/22/2024 10:20 AM EDT Encounter for dental examination PERIODIC ORAL EVALUATION ESTABLISHED PATIENT Routine 09/22/2024 10:20 AM EDT Encounter for dental examination CARIES RISK ASSESSMENT & DOC FINDING MOD RISK Routine 09/22/2024 10:20 AM EDT Encounter for dental examination NUTRITIONAL COUNSELING CONTROL OF DENTAL DISEASE Routine 09/22/2024 10:20 AM EDT Encounter for dental examination ORAL HYGIENE INSTRUCTIONS Routine 09/22/2024 10:20 AM EDT Encounter for dental examination ORAL CANCER SCREENING Routine 09/22/2024 10:20 AM EDT Encounter for dental examination CASE PRESENTATION SUBS DTL & EXTENSIVE TX PLN Routine 09/22/2024 10:20 AM EDT Encounter for dental examination from Last 3 Months Insurance [employer] Member Subscriber Plan / Payer ( fective 2020-Present) Name:Rosana Cox Relation to Subscriber:Self Name:Rosana Cox Payer ID:[id number] Group ID:Not on file Type:Indemnity Address: [place] [id number] [facility] Care Teams Parks And Recreation Manager Relationship Specialty Start Date End Date Cynthia Johnson DMD [address] [place] [address] PCP - General 07/08/20
== END 2024-10-14 10:11 | disposition home or self-care (01) ==
LOC: HO.HBS 09:07
PROVIDERS: PCP Internal Medicine; Visit Provider Physician Assistant Surgical
DX: E66.9 Obesity, unspecified (principal); Z68.35 Body mass index [BMI] 35.0-35.9, adult
CPT/HCPCS: 99214; G2211

== ENCOUNTER → 2024-10-14 09:07 | Outpatient (BNVA) | payer OTHER, SELFPAY | PROVIDERS: PCP Internal Medicine; Visit Provider Physician Assistant Surgical | DX: E66.9 Obesity, unspecified (principal); Z68.35 Body mass index [BMI] 35.0-35.9, adult | CPT/HCPCS: 99212 ==